=== PATIENT | male | born 2000 | race Caucasian/White ===

== ENCOUNTER 2021-05-30 21:40 | Emergency (ER) | payer OTHER ==
[~2021-05-30] VITALS: Ht 180.3 cm; Wt 70.8 kg
[2021-05-30 21:45] VITALS: BP 130/77
[2021-05-30] MEDS ORDERED: ONDANSETRON HCL/PF - ER 4 MG/2 ML VIAL IV ONE (22:30)
[2021-05-30] MEDS ORDERED: GLUCAGON,HUMAN RECOMBINANT 1 MG/VIAL VIAL IV ONE ×2 (22:30→23:00)
[2021-05-30] MEDS ORDERED: GLUCAGON,HUMAN RECOMBINANT 1 MG/VIAL VIAL ONE ×2 (22:33→22:57)
[2021-05-30] MEDS ORDERED: ONDANSETRON HCL/PF 4 MG/2 ML VIAL ONE (22:33)
== END 2021-05-30 23:52 | disposition home or self-care (01) ==
LOC: ER 21:40
DX: T18.128A Food in esophagus causing other injury, initial encounter (principal); X58.XXXA Exposure to other specified factors, initial encounter; Y93.89 Activity, other specified; Y92.89 Other specified places as the place of occurrence of the external cause; Y99.8 Other external cause status
CPT/HCPCS: 96374; 96375; 99291; J1610 ×2; J2405 ×2